=== PATIENT | male | born 1980 ===

== ENCOUNTER 2021-11-04 14:08 | Emergency (ER) | payer SELFPAY ==
[2021-11-04 16:06] VITALS: BP 128/74
[2021-11-04] MEDS ORDERED: LIDOCAINE-MPF (1%) 10 MG/1 ML VIAL 5 ML INFILTRATI ONE (16:42)
[2021-11-04] MEDS ORDERED: AZITHROMYCIN 1 GM ORAL PWDR PACKET PO ONE (16:42)
--- NOTE | 2021-11-04 16:46 | Emergency Department Report ---
ED Male HPI - General Chief complaint: Urogenital-Male Stated complaint: TESTICAL PAIN/DISCHARGE Time Seen by Provider: 11/04/21 16:37 Source: patient Mode of arrival: Ambulatory Limitations: No Limitations - History of Present Illness Initial comments: Patient is 41 years old male with no significant past medical history. Patient presented to the ER complaining of penile discharge and burning sensation since yesterday. Patient stated that he think that he got with the wrong girl last week. Patient denies any fever or chills. He also denies any nausea vomiting or diarrhea. MD Complaint: penile discharge -: days(s) (2) discharge. denies: swelling, mass, urinary retention, blood in urine, fever, nausea/vomiting, incontinence - Related Data Allergies Allergy/AdvReac Type Severity Reaction Status Date / Time ibuprofen AdvReac Hives Verified 11/04/21 16:06 ED Review of Systems ROS: Stated complaint: TESTICAL PAIN/DISCHARGE Other details as noted in HPI Comment: All other systems reviewed and negative Constitutional: denies: chills, fever Respiratory: denies: cough, shortness of breath, SOB with exertion Cardiovascular: denies: chest pain, palpitations Gastrointestinal: denies: abdominal pain, nausea, vomiting Genitourinary: dysuria, discharge. denies: frequency, hematuria, testicular pain, testicular mass Musculoskeletal: denies: back pain Neurological: denies: weakness ED Physical Exam - General Limitations: No Limitations General appearance: alert, in no apparent distress - Head Head exam: Present: atraumatic, normocephalic, normal inspection - Eye Eye exam: Present: normal appearance - ENT ENT exam: Present: mucous membranes moist - Respiratory Respiratory exam: Present: normal lung sounds bilaterally - Cardiovascular Cardiovascular Exam: Present: regular rate, normal rhythm, normal heart sounds - GI/Abdominal GI/Abdominal exam: Present: soft, normal bowel sounds. Absent: distended, tenderness, guarding, rebound, rigid - Extremities Exam Extremities exam: Present: normal inspection, full ROM, normal capillary refill. Absent: tenderness - Back Exam Back exam: Present: normal inspection, full ROM. Absent: CVA tenderness (R), CVA tenderness (L) - Neurological Exam Neurological exam: Present: alert, oriented X3, CN II-XII intact - Psychiatric Psychiatric exam: Present: normal mood - Skin Skin exam: Present: warm, intact, normal color ED Course Vital Signs 11/04/21 16:05 Pulse Rate 89 Respiratory 18 Rate Blood Pressure 128/74 [Left] O2 Sat by Pulse 100 Oximetry ED Medical Decision Making - Medical Decision Making Patient is 41 years old male with no significant past medical history. Patient presented to the ER complaining of penile discharge and burning sensation since yesterday. Patient stated that he think that he got with the wrong girl last week. Patient denies any fever or chills. He also denies any nausea vomiting or diarrhea. Patient received Rocephin 500 mg IM and Zithromax 1g p.o. however patient eloped after he received his medication. Critical care attestation.: If time is entered above; I have spent that time in minutes in the direct care of this critically ill patient, excluding procedure time. ED Disposition Clinical Impression: Penile discharge, STD (male) Disposition: 07 LEFT AWOL/ELOPED Is pt being admited?: No Condition: Stable
== END 2021-11-05 07:36 | disposition left against medical advice (07) ==
LOC: ED 14:08
DX: A64 Unspecified sexually transmitted disease (principal)
CPT/HCPCS: 96372; 99281; J0696; J3490